=== PATIENT | female | born 1985 | race Caucasian/White ===

== ENCOUNTER 2023-01-31 12:59 | Observation (INO) ==
--- NOTE | 2023-01-31 13:22 | ED Triage Note ---
Date of Service January 31, 2023 History of Present Illness This patient was briefly evaluated while in triage. An abbreviated physical exam was performed. This patient is a 37-year-old Female who presents to the ED for evaluation of left leg swelling and redness. Seen here on Saturday for same complaints and di agnosed with cellulitis. She has been taking her prescribed antibiotics. She presents today for increasing redness, swelling and a fever yesterday. Denies chills, n/v, chest pain, SOB, abdominal pain. Physical Exam Constitutional: alert and oriented x3. no acute distress. HEENT: normocephalic, atraumatic. normal conjunctiva.PERRLA. EOM's grossly intact. Respiratory: lungs are clear to auscultation without wheezes, rhonchi, or rales bilaterally. equal chest rise. normal respiratory effort, no accessory muscle use. Cardiovascular: normal heart sounds without murmur. regular rate and rhythm. GI: abdomen is soft, nontender. Skin: left lower leg erythema from ankle to knee with associated swelling and induration MSK: moves all 4 extremities spontaneously Peripheral vascular: extremities warm and well perfused Psych:appropriate mood and affect. Initial orders for labs and / or imaging were placed and patient was placed in the waiting area until a bed is available. Please see further documentation for the full ED course.
[2023-01-31 14:22] LABS: Basophils # (auto) 0.05 K/uL (0-0.2); Basophils % (auto) 0.7 %; Eosinophils # (auto) 0.52 K/uL (0-0.50); Eosinophils % (auto) 7.8 %; Hematocrit (blood only) 43.2 % (37.0-47.0); Hemoglobin 13.5 g/dl (12.0-16.0); Immature Granulocytes # (auto) 0.04 K/uL (0.01-0.20); Immature Granulocytes % (auto) 0.6 %; Lymphocytes # (auto) 1.33 K/uL (1.2-3.4); Lymphocytes % (auto) 19.9 %; Mean Corpuscular Hemoglobin 26.6 pg (25.0-34.0); Mean Corpuscular Hgb Conc 31.3 g/dL (32.0-36.0); Mean Platelet Volume 10.1 fL (9.4-12.4); Monocytes # (auto) 0.36 K/uL (0.11-0.59); Monocytes % (auto) 5.4 %; Neutrophils % (auto) 65.6 %; Platelet Count 210 K/uL (130-400); RDW Coefficient of Variation 14.6 % (11.5-14.5); RDW Standard Deviation 44.6 fL (36.4-46.3); Red Blood Count 5.08 M/uL (4.20-5.40)
[2023-01-31 14:23] LABS: Alanine Aminotransferase 27 U/L (7-52); Albumin Globulin Ratio 1.1 (0.9-2); Albumin Level 3.8 gm/dl (3.4-5.0); Alkaline Phosphatase 46 U/L (34-104); Anion Gap 6 (3-11); Aspartate Aminotransferase 20 U/L (13-39); Bilirubin,Total 0.5 mg/dl (0.2-1.0); Blood Urea Nitrogen 15 mg/dl (6-23); Calcium 8.9 mg/dl (8.6-10.3); Carbon Dioxide 30 mmol/L (21-32); Chloride 103 mmol/L (98-107); Est GFR (African American) 88.6 ml/min; Est GFR (Non-African American) 76.4 ml/min; Globulin 3.4 gm/dl (2.5-4.0); Glucose 117 mg/dl (70-99(Fasting)); Potassium 3.7 mmol/L (3.5-5.1); Sodium 139 mmol/L (136-145); Total Protein 7.2 gm/dl (6.0-8.3)
[2023-01-31] MEDS ORDERED: CEFEPIME 2,000 MG/20 ML VIAL IV STA (14:55)
--- NOTE | 2023-01-31 14:58 | History & Physical Report ---
Date of Service January 31, 2023 Assessment & Plan (1) Cellulitis: Plan: -Admit to med/surge -Currently stable -Patient with significant cellulitis of the LLE, does not appear systemically toxic at this time -Has been on multiple oral abx including keflex, doxy, and Bactrim without full resolution -S/P one dose of cefepime and daptomycin in the ED -Will continue with daptomycin monotherapy for now to cover likely MRSA infection -Blood cultures obtained prior to giving abx in the ED -Will obtain CRP and trend daily to monitor for improvement as she is without a leukocytosis or elevated procal -If no improvement after initial IV anx therapy should consider imaging to monitor for possible OM with the extended duration of her infection -Will give 1L LR bolus -SQ lovenox for DVT PPX -AM CBC, BMP, CRP -HH diet (2) Rash: Plan: -Patient noted to have dryl/scaly and erythematous patches on the BL feet and elbows consistent with possible Psoriasis -Patient never previously diagnosed or treated -Will start BID topical 2% hydrocortisone ointment on the BL upper extremities only with her acute infection at this time Plan The patient was discussed with Dr. Harp at the time of the admission History of Present Illness Chief Complaint: Left leg pain Primary Care Provider: NO PCP Jannie is a 37 year old female with a PMH significant for morbid obesity who presented to the [facility] ED on 01/31/23 with a chief complaint of left LE swelling, redness, and fevers. In the ED vitals were significant for a BP of 174/111 and HR of 101. Labs including CBC, CMP, and procal were only significant for a glucose of 117. Prior to admission the patient was given a dose of Cefepime and Daptomycin. At the time of the exam the patient was sitting in bed in no acute distress. 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 She put some Black Drawing Salve on the area which later caused a pimple/boil to form. She subsequently picked the boil, breaking the skin. She then developed significant erythema, swelling, and pain. She went to an acute care who initially started her on Keflex, but transitioned her to Bactrim 3 days later as she was not improving. She completed the course of bactrim and her symptoms seemed to resolve, but the returned earlier this month. She was seen in the [facility] ED on 01/19 and had a negative LLE venous doppler, she was discharged on Doxycycline and Keflex. She returned to the ED on 01/28 as her symtpoms were not improving and she was switched to Keflex and Bactrim but her symptoms have still not improved. Last night she had a temperature of 100.1F. She denies recent chills, chest pain, SOB, abd pain, nausea, vomiting, diarrhea, dysuria, hematuria, melena, RLE swelling and recent trauma. She denies other significant PMH. When asked, she states that she has had some of the red and dry/scaly skin patches on the BL upper and lower extremities "for years". She has never been seen for these skin patches and typically puts lotion on them. Please refer to Dr. Harp's attestation for any changes to the treatment plan Allergies Allergy/AdvReac Type Severity Reaction Status Date / Time No Known Allergies Allergy Verified 01/31/23 15:20 Home Medications Medication Instructions Recorded Confirmed Type sulfamethoxazole 800 1 tab PO BID 7 days #14 tabs 01/28/23 01/31/23 Rx mg-trimethoprim 160 mg tablet (Bactrim DS) cephalexin 500 mg capsule 500 mg PO Q6H 01/31/23 01/31/23 History Past Med/Surg History Social History Smoking Status: Never smoker Hx Alcohol Use: No Hx Substance Use: No Preferred Language: Ivorian Communication Ability: Effective Fender Finisher Required: No Beliefs That Will Affect Care: None Current Living Situation: Parent Other Information That Helps Us Care for You: No Feels Safe at Home: Yes Safety Concerns: Feels Safe At This Time Assistive Devices: None Physical Exam Physical Exam: Physical Exam: General: In no acute distress, stated age, morbidly obese, well-nourished, non-toxic appearing HEENT: Normocephalic, atraumatic, no scleral icterus, pupils around round, symmetrical, and reactive to light, moist mucus membranes, trachea midline, no thyromegaly Chest/Pulm: No respiratory distress, symmetrical chest expansion, clear breath sounds throughout Cardiac: RRR, no murmurs noted Abdomen: Negative for ascites and bruising, normoactive bowel sounds, soft, non-tender to palpation throughout Musculoskeletal: Symmetrical and without signs of acute trauma, upper and lower extremities with full ROM, no atrophy, spasticity, or flaccidity Extremities: Radial, dorsalis pedis, and posterior tibial pulses are intact and symmetrical, significant swelling in the LLE Skin: Patient with singificant circumferential erythema and swelling of the LLE from the distal mathews to the proximal mathews, well-healing scab noted in the middle of the mathews without signs of drainage, multiple patches of dry/scaly/erythematous skin on the dorsal aspects of the BL feet and overlying the BL elbows Neuro: Alert and oriented to person, place, month, year, and president, no focal defects, no tremors noted Psych: No acute distress, calm and cooperative during the exam Results & Data Results & Data Vital Signs (Past 12 Hours) Vital Signs Pulse Resp BP Pulse Ox O2 Del Method 01/31/23 13:19 102 H 16 174/111 H 97 Room Air Laboratory Results Abnormal lab results 01/31/23 01/31/23 Range/Units 13:41 13:41 MCHC 31.3 L (32.0-36.0) g/dL RDW Coeff of Jim 14.6 H (11.5-14.5) % Eos # (Auto) 0.52 H (0-0.50) K/uL Glucose 117 H (70-99(Fasting)) mg/dl Code Status & VTE Plan Code Status FUll code Supervising Physician Co-Signing Physician Notes I personally saw and examined the patient. I verified all echevarria points and agree with Yoan Jones PA-C with the following exceptions and/or additions: 37 year old female with ongoing left lower extremity cellulitis with various stages of improvement on antibiotics. Main improvements seen when covered for MRSA with doxycycline or Bactrim. Initial skin lesion with pus but resolved. O/E Morbidly obese, HS RRR, no murmurs, Chest CTAB, Abdo SNT, erythema and swelling on left lower extremity from knee to ankle surrounding calf but significantly more erythematous anteriorly, healed wound without fluctuance over anterior mathews, scaling well demarcated rash over b/l feet and elbows consistent with psoriasis A/P Left lower extremity cellulitis - venous doppler negative on 01/19 (I do not see a reason to repeat this currently). No fluctuance on exam to suggest need for further imaging unless she does not improve. Suspect failure due to morbid obesity with some venous insufficiency edema - suspect she just requires a longer course of antibiotics with MRSA coverage. Start daptomycin and cefepime here. Follow up blood cultures. Psoriasis - never knew she had this diagnosis, use steroid creams PRN, follow up with her PCP for ongoing management PG Care Time/CCT Total # of Minutes Spent Total Time Spent with Patient: Total time spent is greater than 50% in coordination of care (as documented) at patient's floor/unit and/or counseling patient: [place] [address] INT INP/OBS CARE 3/75MIN Patient Type Established Medical Decision Making High Complexity Diagnoses Cellulitis L03.90 Rash R21
[2023-01-31] MEDS ORDERED: DAPTOmycin 425 MG in SYRINGE 0 ML IV STA ×2 (15:11→15:12)
[2023-01-31] MEDS ORDERED: LACTATED RINGER'S 1,000 ML IV ONE (15:16)
--- NOTE | 2023-01-31 15:40 | Emergency Department Note ---
Impression & Plan Cellulitis of left leg ED Provider Note INFORMANT: Patient ED PROVIDER(S): Mendoza Mullins MD CHIEF COMPLAINT: Leg pain PLAN: Disposition: Admitted Condition: Good Outpatient prescription management: none Referral: MEDICAL DECISION MAKING: Patient presented because of leg pain. Physical examination was concerning for cellulitis. Unfortunately despite multiple courses of antibiotics she is getting worse. I did discuss this with the ED pharmacist and it was felt that she would be best treated with IV antibiotics. We did choose cefepime and daptomycin. Discussed further management in the hospital with the patient. I did order CT imaging of the leg. Patient was in agreement. Consultation was made with Dr. Kaveh Harp of the [facility] service. Patient was evaluated in the ER for further management. He did ask for the CT to be held and would like to initiate treatment first. After review of the information above and other included data, I feel the patient requires admission. Triage Nursing notes reviewed and agree them. Vital Signs: reviewed and remarkable for no significant abnormalities Prior /Outside records reviewed: Prior ED visits reviewed. Differential diagnosis: Cellulitis, abscess, MRSA infection, DVT, necrotizing fasciitis, dermatitis, drug eruption, allergic reaction, as well as other pathologies. Diagnostics, as interpreted by me: ECG: none Cardiac Monitoring: none Medical decision rules: none Imaging studies: Canceled by internal medicine HPI: The patient is a 37 year old female who presents to the Emergency Room with complaints of left leg pain. This started a month ago and is worsening. The patient was diagnosed previously with cellulitis. She is completed 3 courses of antibiotics and although she had some improvement initially she got worse. She was seen in the ED 3 days ago and Bactrim was added. She noted being feverish yesterday and the leg is more red and tender. Initially ultrasound was performed and ruled out DVT. Patient noted at the start there was a small pimple on the mathews and she did pop this. The patient also notes the following associated symptoms, left leg swelling. The patient has found no relieving factors. Current pain is rated as 7/10. Pt denies LOC, headache, diaphoresis, visual changes, neck pain, chest pain, breathing difficulties, nausea, vomiting, abdominal pain, back pain, urinary symptoms, numbness, weakness, lymphadenopathy, or other complaints. 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 Oropharynx unremarkable. EYES: Normal conjunctiva. Sclera non-icteric. NECK: Inspection normal. Non-tender. Supple. No nuchal rigidity. FROM. No masses. RESPIRATORY: Clear to auscultation. No wheezes. No rales. Normal respiratory effort. CARDIAC: Normal rate. Normal rhythm. No murmurs. No rubs. Extremities warm and well perfused. Pulses equal. No JVD. GI: Soft, non-distended. No tenderness to palpation. No rebound or guarding. No masses. RECTAL: Deferred. MUSCULOSKELETAL: Atraumatic. Chest examination reveals no tenderness. The back is symmetrical on inspection without obvious abnormality. There is no CVA tenderness to palpation. No joint edema. LOWER EXTREMITIES: There is erythematous discoloration to the left mathews. No crepitus. There is a healing scab noted in the mid mathews. 1+ edema. Right lower extremity is unremarkable. NEURO: Normal sensorium. No sensory or motor deficits noted. SKIN: Erythematous and warmth consistent with cellulitis of the left lower extremity. There is a small patch of psoriasis noted on the left ankle. No petechia, purpura, vesicles, pustules or bullae noted. Past Med/Surg History Social History Smoking Status: Never smoker Preferred Language: Japanese Feels Safe at Home: Yes Allergies Allergies Allergy/AdvReac Type Severity Reaction Status Date / Time No Known Allergies Allergy Verified 01/31/23 15:20 Home Meds Home Medications Medication Instructions Recorded Confirmed cephalexin 500 mg capsule 500 mg PO Q6H 01/31/23 01/31/23 Previous Rx's Medication Instructions Recorded sulfamethoxazole 800 1 tab PO BID 7 days #14 tabs 01/28/23 mg-trimethoprim 160 mg tablet (Bactrim DS) Results & Data (ED) Vital Signs Vital Signs - 24 hr 01/31/23 13:19 01/31/23 15:06 Pulse Rate 102 H Respiratory Rate 16 16 Respiratory Depth Normal Blood Pressure 174/111 H Blood Pressure Mean 132 Pulse Oximetry 97 Oxygen Delivery Method Room Air Sepsis Recent Fever Within 48 Hours Yes Sepsis New/Unexplained Change in Mental Status No Sepsis Action Taken by Nursing No Action Required Laboratory Data 01/31/23 13:41 01/31/23 13:41 Lab Results 01/31/23 01/31/23 01/31/23 Range/Units 13:41 13:41 13:41 WBC 6.70 (4.8-10.8) K/ul RBC 5.08 (4.20-5.40) M/uL Hgb 13.5 (12.0-16.0) g/dl Hct 43.2 (37.0-47.0) % MCV 85.0 (80.0-100.0) fL MCH 26.6 (25.0-34.0) pg MCHC 31.3 L (32.0-36.0) g/dL RDW Std Deviation 44.6 (36.4-46.3) fL RDW Coeff of Jim 14.6 H (11.5-14.5) % Plt Count 210 (130-400) K/uL MPV 10.1 (9.4-12.4) fL Immature Gran % (Auto) 0.6 % Neut % (Auto) 65.6 % Lymph % (Auto) 19.9 % Briscoe % (Auto) 5.4 % Eos % (Auto) 7.8 % Baso % (Auto) 0.7 % Neut # (Auto) 4.40 (1.40-6.50) K/uL Lymph # (Auto) 1.33 (1.2-3.4) K/uL Briscoe # (Auto) 0.36 (0.11-0.59) K/uL Eos # (Auto) 0.52 H (0-0.50) K/uL Baso # (Auto) 0.05 (0-0.2) K/uL Immature Gran # (Auto) 0.04 (0.01-0.20) K/uL Sodium 139 (136-145) mmol/L Potassium 3.7 (3.5-5.1) mmol/L Chloride 103 (98-107) mmol/L Carbon Dioxide 30 (21-32) mmol/L Anion Gap 6 (3-11) BUN 15 (6-23) mg/dl Creatinine 0.94 (0.6-1.2) mg/dl Est Cr Clr Drug Dosing Not Reportable Est GFR ( Amer) 88.6 ml/min Est GFR (Non-Af Amer) 76.4 ml/min BUN/Creatinine Ratio 16.0 (10-20) Glucose 117 H (70-99(Fasting)) mg/dl Lactate 1.0 (0.4-2.0) mmol/L Calcium 8.9 (8.6-10.3) mg/dl Total Bilirubin 0.5 (0.2-1.0) mg/dl AST 20 (13-39) U/L ALT 27 (7-52) U/L Alkaline Phosphatase 46 (34-104) U/L Total Protein 7.2 (6.0-8.3) gm/dl Albumin 3.8 (3.4-5.0) gm/dl Globulin 3.4 (2.5-4.0) gm/dl Albumin/Globulin Ratio 1.1 (0.9-2) Procalcitonin (0-0.5) ng/ml 01/31/23 Range/Units 13:41 WBC (4.8-10.8) K/ul RBC (4.20-5.40) M/uL Hgb (12.0-16.0) g/dl Hct (37.0-47.0) % MCV (80.0-100.0) fL MCH (25.0-34.0) pg MCHC (32.0-36.0) g/dL RDW Std Deviation (36.4-46.3) fL RDW Coeff of Jim (11.5-14.5) % Plt Count (130-400) K/uL MPV (9.4-12.4) fL Immature Gran % (Auto) % Neut % (Auto) % Lymph % (Auto) % Briscoe % (Auto) % Eos % (Auto) % Baso % (Auto) % Neut # (Auto) (1.40-6.50) K/uL Lymph # (Auto) (1.2-3.4) K/uL Briscoe # (Auto) (0.11-0.59) K/uL Eos # (Auto) (0-0.50) K/uL Baso # (Auto) (0-0.2) K/uL Immature Gran # (Auto) (0.01-0.20) K/uL Sodium (136-145) mmol/L Potassium (3.5-5.1) mmol/L Chloride (98-107) mmol/L Carbon Dioxide (21-32) mmol/L Anion Gap (3-11) BUN (6-23) mg/dl Creatinine (0.6-1.2) mg/dl Est Cr Clr Drug Dosing Est GFR ( Amer) ml/min Est GFR (Non-Af Amer) ml/min BUN/Creatinine Ratio (10-20) Glucose (70-99(Fasting)) mg/dl Lactate (0.4-2.0) mmol/L Calcium (8.6-10.3) mg/dl Total Bilirubin (0.2-1.0) mg/dl AST (13-39) U/L ALT (7-52) U/L Alkaline Phosphatase (34-104) U/L Total Protein (6.0-8.3) gm/dl Albumin (3.4-5.0) gm/dl Globulin (2.5-4.0) gm/dl Albumin/Globulin Ratio (0.9-2) Procalcitonin < 0.05 (0-0.5) ng/ml Administered Medications Discontinued Medications Cefepime HCl (Maxipime) 2,000 mg in 20 mls @ 5 mls/min IV NOW STA; Protocol Stop: 01/31/23 14:58 Last Admin: 01/31/23 15:06 Dose: 5 mls/min Documented By: KV Discharge Plan Visit Data Chief Complaint: Leg Injury/Pain Stated Complaint: LEG IS RED AND SWOLLEN ED Provider: Mendoza Mullins Discharge Problem: Cellulitis of left leg Forms Stand Alone Forms: My [facility] Prescriptions Prescriptions: No Action sulfamethoxazole-trimethoprim [Bactrim DS] 800-160 mg tablet 1 tab PO BID 7 Days Qty: 14 0RF Rx Instructions: STARTED 01/30/23 FOR 7 DAYS. cephalexin 500 mg capsule 500 mg PO Q6H Rx Instructions: STARTED 01/30/23 FOR 5 DAYS. Referrals Referrals: PCP,NO [Primary Care Provider] -
[2023-01-31 15:46] LABS: C Reactive Protein 2.29 mg/dl (0-0.5)
[2023-01-31] MEDS: ENOXAPARIN INJ 40 MG/0.4 ML SYR SQ SCH (21:57)
[2023-01-31] MEDS: HYDROCORTISONE 2.5% CR 30 GM TUBE EXT SCH (21:58)
[2023-01-31] MEDS: CEFEPIME 2,000 MG in SYRINGE 0 ML IV SCH (22:10)
[2023-02-01] MEDS: CEFEPIME 2,000 MG in SYRINGE 0 ML IV SCH ×3 (06:06→22:07)
[2023-02-01 06:50] LABS: Basophils # (auto) 0.07 K/uL (0-0.2); Basophils % (auto) 1.2 %; Eosinophils # (auto) 0.48 K/uL (0-0.50); Hematocrit (blood only) 39.1 % (37.0-47.0); Hemoglobin 12.1 g/dl (12.0-16.0); Immature Granulocytes # (auto) 0.03 K/uL (0.01-0.20); Immature Granulocytes % (auto) 0.5 %; Lymphocytes # (auto) 1.52 K/uL (1.2-3.4); Lymphocytes % (auto) 25.2 %; Mean Corpuscular Hemoglobin 26.4 pg (25.0-34.0); Mean Corpuscular Hgb Conc 30.9 g/dL (32.0-36.0); Mean Corpuscular Volume 85.2 fL (80.0-100.0); Mean Platelet Volume 10.7 fL (9.4-12.4); Monocytes # (auto) 0.48 K/uL (0.11-0.59); Neutrophils # (auto) 3.45 K/uL (1.40-6.50); Neutrophils % (auto) 57.1 %; Platelet Count 188 K/uL (130-400); RDW Coefficient of Variation 14.6 % (11.5-14.5); RDW Standard Deviation 44.7 fL (36.4-46.3); Red Blood Count 4.59 M/uL (4.20-5.40); White Blood Count 6.03 K/ul (4.8-10.8)
[2023-02-01 07:06] LABS: Est GFR (African American) 93.4 ml/min; Potassium 3.9 mmol/L (3.5-5.1)
[2023-02-01 07:07] LABS: BUN Creatinine Ratio 15.6 (10-20); C Reactive Protein 2.26 mg/dl (0-0.5); Calcium 8.7 mg/dl (8.6-10.3); Est GFR (Non-African American) 80.5 ml/min
--- NOTE | 2023-02-01 08:08 | Hospitalist Progress Note ---
Date of Service February 01, 2023 Assessment & Plan (1) Cellulitis: Plan: Recurrent/ongoing despite multiple rounds of PO abx as an outpatient after having a blister turned pimple to anterior L mathews and subsequently developed cellulitis. * Happened mid-december, was seen at urgent care and given keflex and then changed to bactrim after 3 days without improvement. Seen in ER 01/19 (doppler negative for DVT at that time) and discharged on Doxy/Keflex with some improvement and then worsening and represented to ER 01/28 and changed to Keflex/Bactrim Given Cefepime/Dapto in ER --> continues on Cefepime/Dapto for MRSA/pseudomonal coverage. Unknown hx DM, but suspect at least insulin resistance/obesity Added probiotic given continued abx use -- denied excessive diarrhea concerning for cdiff but will monitor Blood cultures pending CRP elevated but improved 2.29--> 2.26 and will trend Xray w/o bony involvement Did not have appreciable abscess on exam, erythema within marking but if without significant improvement in AM will obtain further imaging Elevate extremity Will add tylenol 1gm Q8h prn for tylenol/fever, oxycodone 5mg prn moderate pain. Zofran added prn Check A1c for AM to eval for underlying DM. Lovenox SQ ordered for DVT proph (2) Rash: Plan: Patient noted to have dryl/scaly and erythematous patches on the BL feet and elbows c/w psoriasis, never dianoged in past or treated Started topical hydrocortisone BID (not to affected cellulitic leg at this time, patient aware of such) CM working on ref to derm at discharge Plan continued inpatient stay Admission and Anticipated Discharge Date Admission Date: January 31, 2023 Supervising Physician Co-Signing Physician Notes PA Supervision Note: I did not personally see or examine the patient today, but I verified all echevarria points of OLGA Prince's assessment and plan with the following exceptions/additions: Patient also with persistently elevated blood pressures Monitor but may need to start on antihypertensive Continue broad-spectrum coverage given failure of outpatient antibiotic therapy to include coverage for Pseudomonas with cefepime and daptomycin for MRSA as well as other staph and strep Most likely would need a much more potent steroid for psoriasis such as budesonide Subjective eval this morning, doing alright sitting up in chair, leg propped up on recliner. redness about the same, possibly slightly less. reports edema improved. Discussed in bed/propping up to level of heart to help with swelling. 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 No prior infectious history. She does have bilateral plaques/scaly to feet and posterior elbows c/w psoriasis and discussed dermatology in follow up. She also does not have PCP -- working on such. Obesity but no known history of diabetes. Discussed increased risk for pseudomonal infections. Last fever ~100/101 on Saturday. She reports initially had been improving on orals but should have stayed when Dr Longoria asked her but she didn't have anything with her and that they thought reasonable to give dual abx a shot. Pain currently controlled with ordered medications. No chills, chest pain, shortness of breath, abdominal pain, nausea or vomiting at present. Questions/concerns addressed at this time. Physical Exam Physical Exam: General : WD/WN obese female sitting up in chair, leg elevated on chair HEENT: head normocephalic, atraumatic, thick neck, trachea midline Resp: CTA, diminished in the bases, 96% on RA, no w/c CV: RRR, no significant m/r/g GI: +BS, soft/NT : no barragan MSK/Neuro/Skin: no focal deficit/slurred speech, answering questions appropriately L anterior mathews in site of prior "pimple" with scab, no fluctuance or drainage appreciated significant erythema to LLE, primarily anteriorly, within markings, tenderness to palpation dry/flaking plaques to b/l dorsal feet, posterior elbows c/w psoriasis Psych: AOx3, cooperative and pleasant with exam Results & Data Results & Data Vital Signs (Past 12 Hours) Vital Signs Temp Pulse Pulse Resp BP Pulse Ox O2 Del Method 02/01/23 07:33 36.8 C 88 16 126/84 97 Room Air 01/31/23 20:50 37.1 C 94 H 16 158/108 H 97 Room Air 01/31/23 20:50 Room Air Laboratory Results 02/01/23 02/01/23 01/31/23 Range/Units 05:52 05:52 16:11 WBC 6.03 (4.8-10.8) K/ul RBC 4.59 (4.20-5.40) M/uL Hgb 12.1 (12.0-16.0) g/dl Hct 39.1 (37.0-47.0) % MCV 85.2 (80.0-100.0) fL MCH 26.4 (25.0-34.0) pg MCHC 30.9 L (32.0-36.0) g/dL RDW Std Deviation 44.7 (36.4-46.3) fL RDW Coeff of Jim 14.6 H (11.5-14.5) % Plt Count 188 (130-400) K/uL MPV 10.7 (9.4-12.4) fL Immature Gran % (Auto) 0.5 % Neut % (Auto) 57.1 % Lymph % (Auto) 25.2 % [place] % (Auto) 8.0 % Eos % (Auto) 8.0 % Baso % (Auto) 1.2 % Neut # (Auto) 3.45 (1.40-6.50) K/uL Lymph # (Auto) 1.52 (1.2-3.4) K/uL [place] # (Auto) 0.48 (0.11-0.59) K/uL Eos # (Auto) 0.48 (0-0.50) K/uL Baso # (Auto) 0.07 (0-0.2) K/uL Immature Gran # (Auto) 0.03 (0.01-0.20) K/uL Sodium 137 (136-145) mmol/L Potassium 3.9 (3.5-5.1) mmol/L Chloride 103 (98-107) mmol/L Carbon Dioxide 28 (21-32) mmol/L Anion Gap 6 (3-11) BUN 14 (6-23) mg/dl Creatinine 0.90 (0.6-1.2) mg/dl Est Cr Clr Drug Dosing 140.0 Est GFR ( Amer) 93.4 ml/min Est GFR (Non-Af Amer) 80.5 ml/min BUN/Creatinine Ratio 15.6 (10-20) Glucose 104 H (70-99(Fasting)) mg/dl Lactate (0.4-2.0) mmol/L Calcium 8.7 (8.6-10.3) mg/dl Total Bilirubin (0.2-1.0) mg/dl AST (13-39) U/L ALT (7-52) U/L Alkaline Phosphatase (34-104) U/L C-Reactive Protein 2.26 H (0-0.5) mg/dl Total Protein (6.0-8.3) gm/dl Albumin (3.4-5.0) gm/dl Globulin (2.5-4.0) gm/dl Albumin/Globulin Ratio (0.9-2) Procalcitonin (0-0.5) ng/ml SARS-CoV-2, RNA, NAAT NEGATIVE (NEGATIVE) 01/31/23 01/31/23 01/31/23 Range/Units 13:41 13:41 13:41 WBC (4.8-10.8) K/ul RBC (4.20-5.40) M/uL Hgb (12.0-16.0) g/dl Hct (37.0-47.0) % MCV (80.0-100.0) fL MCH (25.0-34.0) pg MCHC (32.0-36.0) g/dL RDW Std Deviation (36.4-46.3) fL RDW Coeff of Jim (11.5-14.5) % Plt Count (130-400) K/uL MPV (9.4-12.4) fL Immature Gran % (Auto) % Neut % (Auto) % Lymph % (Auto) % [place] % (Auto) % Eos % (Auto) % Baso % (Auto) % Neut # (Auto) (1.40-6.50) K/uL Lymph # (Auto) (1.2-3.4) K/uL [place] # (Auto) (0.11-0.59) K/uL Eos # (Auto) (0-0.50) K/uL Baso # (Auto) (0-0.2) K/uL Immature Gran # (Auto) (0.01-0.20) K/uL Sodium 139 (136-145) mmol/L Potassium 3.7 (3.5-5.1) mmol/L Chloride 103 (98-107) mmol/L Carbon Dioxide 30 (21-32) mmol/L Anion Gap 6 (3-11) BUN 15 (6-23) mg/dl Creatinine 0.94 (0.6-1.2) mg/dl Est Cr Clr Drug Dosing Not Reportable Est GFR ( Amer) 88.6 ml/min Est GFR (Non-Af Amer) 76.4 ml/min BUN/Creatinine Ratio 16.0 (10-20) Glucose 117 H (70-99(Fasting)) mg/dl Lactate 1.0 (0.4-2.0) mmol/L Calcium 8.9 (8.6-10.3) mg/dl Total Bilirubin 0.5 (0.2-1.0) mg/dl AST 20 (13-39) U/L ALT 27 (7-52) U/L Alkaline Phosphatase 46 (34-104) U/L C-Reactive Protein 2.29 H (0-0.5) mg/dl Total Protein 7.2 (6.0-8.3) gm/dl Albumin 3.8 (3.4-5.0) gm/dl Globulin 3.4 (2.5-4.0) gm/dl Albumin/Globulin Ratio 1.1 (0.9-2) Procalcitonin < 0.05 (0-0.5) ng/ml SARS-CoV-2, RNA, NAAT (NEGATIVE) 01/31/23 Range/Units 13:41 WBC 6.70 (4.8-10.8) K/ul RBC 5.08 (4.20-5.40) M/uL Hgb 13.5 (12.0-16.0) g/dl Hct 43.2 (37.0-47.0) % MCV 85.0 (80.0-100.0) fL MCH 26.6 (25.0-34.0) pg MCHC 31.3 L (32.0-36.0) g/dL RDW Std Deviation 44.6 (36.4-46.3) fL RDW Coeff of Jim 14.6 H (11.5-14.5) % Plt Count 210 (130-400) K/uL MPV 10.1 (9.4-12.4) fL Immature Gran % (Auto) 0.6 % Neut % (Auto) 65.6 % Lymph % (Auto) 19.9 % [place] % (Auto) 5.4 % Eos % (Auto) 7.8 % Baso % (Auto) 0.7 % Neut # (Auto) 4.40 (1.40-6.50) K/uL Lymph # (Auto) 1.33 (1.2-3.4) K/uL [place] # (Auto) 0.36 (0.11-0.59) K/uL Eos # (Auto) 0.52 H (0-0.50) K/uL Baso # (Auto) 0.05 (0-0.2) K/uL Immature Gran # (Auto) 0.04 (0.01-0.20) K/uL Sodium (136-145) mmol/L Potassium (3.5-5.1) mmol/L Chloride (98-107) mmol/L Carbon Dioxide (21-32) mmol/L Anion Gap (3-11) BUN (6-23) mg/dl Creatinine (0.6-1.2) mg/dl Est Cr Clr Drug Dosing Est GFR ( Amer) ml/min Est GFR (Non-Af Amer) ml/min BUN/Creatinine Ratio (10-20) Glucose (70-99(Fasting)) mg/dl Lactate (0.4-2.0) mmol/L Calcium (8.6-10.3) mg/dl Total Bilirubin (0.2-1.0) mg/dl AST (13-39) U/L ALT (7-52) U/L Alkaline Phosphatase (34-104) U/L C-Reactive Protein (0-0.5) mg/dl Total Protein (6.0-8.3) gm/dl Albumin (3.4-5.0) gm/dl Globulin (2.5-4.0) gm/dl Albumin/Globulin Ratio (0.9-2) Procalcitonin (0-0.5) ng/ml SARS-CoV-2, RNA, NAAT (NEGATIVE) Diagnostic Findings Tibia/Fibula X-Ray 02/01/23 10:34 XR tibia fibula LT 2V CLINICAL HISTORY: ongoing cellulitis, eval osteo TECHNIQUE: 2 radiographic views of the left leg were obtained. Comparison: None available at the time of this dictation. FINDINGS: No focal erosions are seen to suggest osteomyelitis. Joint spaces are well- preserved. Vascular calcifications are seen. IMPRESSION: No focal erosions are seen to suggest osteomyelitis. If clinical concern remains, MRI is a more sensitive modality. ACT 112: Negative or not required by law. Electronically signed by: Damián Jernigan M.D. 02/01/2023 11:45 AM PG Care Time/CCT Total # of Minutes Spent Total Time Spent with Patient: Total time spent is greater than 50% in coordination of care (as documented) at patient's floor/unit and/or counseling patient: Coding Level of Care Code 00128 SUB INP/OBS CARE 3/50MIN Diagnoses Cellulitis L03.90 Rash R21
[2023-02-01] MEDS: ENOXAPARIN INJ 40 MG/0.4 ML SYR SQ SCH ×2 (09:23→19:47)
[2023-02-01] MEDS: HYDROCORTISONE 2.5% CR 30 GM TUBE EXT SCH ×2 (09:51→19:47)
--- NOTE | 2023-02-01 11:46 | XRay Report ---
XR tibia fibula LT 2V CLINICAL HISTORY: ongoing cellulitis, eval osteo TECHNIQUE: 2 radiographic views of the left leg were obtained. Comparison: None available at the time of this dictation. FINDINGS: No focal erosions are seen to suggest osteomyelitis. Joint spaces are well-preserved. Vascular calcif ications are seen. IMPRESSION: No focal erosions are seen to suggest osteomyelitis. If clinical concern remains, MRI is a more sensi tive modality. ACT 112: Negative or not required by law. Electronically signed by: Damián Jernigan M.D. 02/01/2023 11:45 AM
[2023-02-01] MEDS: DAPTOmycin 425 MG in SYRINGE 0 ML IV SCH (15:10)
[2023-02-01] MEDS ORDERED: ACETAMINOPHEN 500 MG TAB PO PRN (15:17)
[2023-02-01] MEDS ORDERED: oxyCODONE HCL IR 5 MG TAB (IMMEDIATE RELEASE) PO PRN (15:17)
[2023-02-01] MEDS ORDERED: ONDANSETRON INJ 2 MG/ML 2 ML VIAL IV PRN (15:18)
[2023-02-01] MEDS: ADVANCED PROBIOTIC 1250 MG CAPSULE PO SCH (16:43)
[2023-02-02] MEDS: CEFEPIME 2,000 MG in SYRINGE 0 ML IV SCH ×3 (05:46→21:01)
[2023-02-02 06:13] LABS: Basophils # (auto) 0.06 K/uL (0-0.2); Basophils % (auto) 1.1 %; Eosinophils # (auto) 0.39 K/uL (0-0.50); Eosinophils % (auto) 7.3 %; Hematocrit (blood only) 39.6 % (37.0-47.0); Hemoglobin 12.5 g/dl (12.0-16.0); Immature Granulocytes # (auto) 0.02 K/uL (0.01-0.20); Immature Granulocytes % (auto) 0.4 %; Lymphocytes # (auto) 1.93 K/uL (1.2-3.4); Lymphocytes % (auto) 36.2 %; Mean Corpuscular Hemoglobin 26.7 pg (25.0-34.0); Mean Corpuscular Hgb Conc 31.6 g/dL (32.0-36.0); Mean Corpuscular Volume 84.6 fL (80.0-100.0); Mean Platelet Volume 10.3 fL (9.4-12.4); Monocytes # (auto) 0.54 K/uL (0.11-0.59); Monocytes % (auto) 10.1 %; Neutrophils # (auto) 2.39 K/uL (1.40-6.50); Neutrophils % (auto) 44.9 %; Platelet Count 193 K/uL (130-400); RDW Coefficient of Variation 14.6 % (11.5-14.5); RDW Standard Deviation 44.7 fL (36.4-46.3); Red Blood Count 4.68 M/uL (4.20-5.40); White Blood Count 5.33 K/ul (4.8-10.8)
[2023-02-02 06:18] LABS: BUN Creatinine Ratio 16.9 (10-20); C Reactive Protein 1.6 mg/dl (0-0.5); Creatinine Clr Calc Pharmacy 175.1 ml/min; Est GFR (Non-African American) 88.8 ml/min; Potassium 3.8 mmol/L (3.5-5.1)
[2023-02-02 06:51] LABS: Estimated Average Glucose 134 mg/dl; Hemoglobin A1C 6.3 % (4.5-5.6)
[2023-02-02] MEDS ORDERED: hydroCHLOROthiazide 25 MG TAB PO STA ×2 (07:46→18:08)
--- NOTE | 2023-02-02 07:49 | Hospitalist Progress Note ---
Date of Service February 02, 2023 Assessment & Plan (1) Cellulitis: Plan: Recurrent/ongoing despite multiple rounds of PO abx as an outpatient after having a blister turned pimple to anterior L mathews and subsequently developed cellulitis. * Happened mid-december, was seen at urgent care and given keflex and then changed to bactrim after 3 days without improvement. Seen in ER 01/19 (doppler negative for DVT at that time) and discharged on Doxy/Keflex with some improvement and then worsening and represented to ER 01/28 and changed to Keflex/Bactrim Cefepime/Dapto for MRSA/strep/pseudomonas coverage Unknown prior hx DM< A1c checked and pre-DM 6.3 Probiotic Blood cultures NGTD CRP trending down on repeat Xray w/o tray involvement Appearing improved on exam, no need for MRI/CT at present Pain control -- has not needed Lovenox for DVT prophylaxis Monitor response/likely ability to switch to PO tomorrow likely to Bactrim/Clinda? (2) Rash: Plan: Patient noted to have dryl/scaly and erythematous patches on the BL feet and elbows c/w psoriasis, never dianoged in past or treated Started topical hydrocortisone BID (not to affected cellulitic leg at this time, patient aware of such) CM working on ref to derm at discharge Changed topical to betamethasone topical -- monitor response (3) Pre-diabetes: Plan: A1c checked, 6.3 -- suspect metabolic syndrome w/ obesity as well/likely insulin resistance Counseling Will need outpt f/u Benefit from starting metformin, defer for now (4) Hypertension: Plan: Significant elevations, initially suspected due to pain but remaining elevated w/ pain resolving as per patient Asymptomatic from such Decision to start HCTZ 12.5mg daily to assist w/ edema as well -- monitor kidney function/BP on repeat Continued titrations as needed (5) Obesity: Plan: noted, BMI 61 Weight loss encouraged PCP being arranged for f/u as she does not have one -- also need f/u for Pre-DM and HTN as above Plan continued inpatient stay, possible switch to PO abx for tomorrow Will need new PCP at or, CM arranging for derm as well for psoriasis suspected Admission and Anticipated Discharge Date Admission Date: January 31, 2023 Supervising Physician Co-Signing Physician Notes PA Supervision Note: I did not personally see or examine the patient today, but I verified all echevarria points of OLGA Prince's assessment and plan with the following exceptions/additions: None Subjective eval this morning, doing well. edema and redness improving, denies having any pain at present laying in bed with extremity elevated discussed BP -- asymptomatic but continues on high side -- discussed HCTZ which we started and hopefully will also assist with swelling and will keep eye on kidney function. Also discussed A1/pre-diabetes. Discussed if blood cultures remain negative, planning to switch to PO abx for tomorrow to include coverage for pseudomonas. Also discussed switching to stronger steroid cream for likely psoriasis. Questions/concerns addressed at this time. Physical Exam Physical Exam: General : WD/WN obese female laying in bed, NAD, leg elevated HEENT: head normocephalic, mmm, trachea midline Resp; no distress, no wheezing, on room air CV: RRR, no significant m/r/g GI: +BS, soft/NT : no barragan MSK/Neuro/Skin: no focal deficit/slurred speech, answering questions appropriately L anterior mathews in site of prior "pimple" with scab, no fluctuance or drainage appreciated significant erythema to LLE, primarily anteriorly, within markings --IMPROVED, less tenderness. dry/flaking plaques to b/l dorsal feet, posterior elbows c/w psoriasis Psych: AOx3, cooperative and pleasant with exam Results & Data Results & Data Vital Signs (Past 12 Hours) Vital Signs Temp Pulse Resp BP BP Pulse Ox O2 Del Method 02/02/23 07:14 36.9 C 81 18 170/116 H 159/105 H 95 Room Air 02/01/23 19:58 36.9 C 87 16 148/98 H 99 Room Air Laboratory Results 02/02/23 02/02/23 02/02/23 Range/Units 05:40 05:40 05:40 WBC 5.33 (4.8-10.8) K/ul RBC 4.68 (4.20-5.40) M/uL Hgb 12.5 (12.0-16.0) g/dl Hct 39.6 (37.0-47.0) % MCV 84.6 (80.0-100.0) fL MCH 26.7 (25.0-34.0) pg MCHC 31.6 L (32.0-36.0) g/dL RDW Std Deviation 44.7 (36.4-46.3) fL RDW Coeff of Jim 14.6 H (11.5-14.5) % Plt Count 193 (130-400) K/uL MPV 10.3 (9.4-12.4) fL Immature Gran % (Auto) 0.4 % Neut % (Auto) 44.9 % Lymph % (Auto) 36.2 % [place] % (Auto) 10.1 % Eos % (Auto) 7.3 % Baso % (Auto) 1.1 % Neut # (Auto) 2.39 (1.40-6.50) K/uL Lymph # (Auto) 1.93 (1.2-3.4) K/uL [place] # (Auto) 0.54 (0.11-0.59) K/uL Eos # (Auto) 0.39 (0-0.50) K/uL Baso # (Auto) 0.06 (0-0.2) K/uL Immature Gran # (Auto) 0.02 (0.01-0.20) K/uL Sodium 139 (136-145) mmol/L Potassium 3.8 (3.5-5.1) mmol/L Chloride 103 (98-107) mmol/L Carbon Dioxide 29 (21-32) mmol/L Anion Gap 7 (3-11) BUN 14 (6-23) mg/dl Creatinine 0.83 (0.6-1.2) mg/dl Est Cr Clr Drug Dosing 175.1 ml/min Est GFR ( Amer) 103.0 ml/min Est GFR (Non-Af Amer) 88.8 ml/min BUN/Creatinine Ratio 16.9 (10-20) Glucose 105 H (70-99(Fasting)) mg/dl Estimat Average Glucose 134 mg/dl Hemoglobin A1c 6.3 H (4.5-5.6) % Calcium 9.0 (8.6-10.3) mg/dl C-Reactive Protein 1.60 H (0-0.5) mg/dl PG Care Time/CCT Total # of Minutes Spent Total Time Spent with Patient: Total time spent is greater than 50% in coordination of care (as documented) at patient's floor/unit and/or counseling patient: Coding Level of Care Code 62878 SUB INP/OBS CARE 50MIN Diagnoses Cellulitis L03.90 Rash R21 Pre-diabetes R73.03 Hypertension I10 Obesity E66.9
[2023-02-02] MEDS: ADVANCED PROBIOTIC 1250 MG CAPSULE PO SCH (08:39)
[2023-02-02] MEDS: ENOXAPARIN INJ 40 MG/0.4 ML SYR SQ SCH ×2 (08:40→21:01)
[2023-02-02] MEDS: BETAMETHASONE DIP AUG (DIPROLENE) 0.05% CR 15 GM TUBE EXT PRN (12:35)
[2023-02-02] MEDS: hydrALAZINE HCL 20 MG/ML VIAL IV PRN (14:51)
[2023-02-02] MEDS: DAPTOmycin 425 MG in SYRINGE 0 ML IV SCH (17:03)
[2023-02-03] MEDS: CEFEPIME 2,000 MG in SYRINGE 0 ML IV SCH ×3 (05:34→21:58)
[2023-02-03 05:49] LABS: Basophils # (auto) 0.05 K/uL (0-0.2); Basophils % (auto) 0.8 %; Eosinophils % (auto) 5.1 %; Hematocrit (blood only) 41.7 % (37.0-47.0); Hemoglobin 13.6 g/dl (12.0-16.0); Immature Granulocytes # (auto) 0.03 K/uL (0.01-0.20); Immature Granulocytes % (auto) 0.5 %; Lymphocytes # (auto) 2.44 K/uL (1.2-3.4); Lymphocytes % (auto) 41.1 %; Mean Corpuscular Hemoglobin 26.8 pg (25.0-34.0); Mean Corpuscular Hgb Conc 32.6 g/dL (32.0-36.0); Mean Corpuscular Volume 82.2 fL (80.0-100.0); Mean Platelet Volume 10.8 fL (9.4-12.4); Monocytes # (auto) 0.42 K/uL (0.11-0.59); Monocytes % (auto) 7.1 %; Neutrophils % (auto) 45.4 %; Platelet Count 195 K/uL (130-400); RDW Coefficient of Variation 14.6 % (11.5-14.5); RDW Standard Deviation 43.5 fL (36.4-46.3); Red Blood Count 5.07 M/uL (4.20-5.40); White Blood Count 5.94 K/ul (4.8-10.8)
[2023-02-03 05:58] LABS: Calcium 8.9 mg/dl (8.6-10.3)
[2023-02-03 06:03] LABS: BUN Creatinine Ratio 18.6 (10-20); C Reactive Protein 0.93 mg/dl (0-0.5); Creatinine Clr Calc Pharmacy 207.6 ml/min; Est GFR (African American) 126.5 ml/min; Est GFR (Non-African American) 109.1 ml/min
--- NOTE | 2023-02-03 08:10 | Hospitalist Progress Note ---
Date of Service February 03, 2023 Assessment & Plan (1) Cellulitis: Plan: Recurrent/ongoing despite multiple rounds of PO abx as an outpatient after having a blister turned pimple to anterior L mathews and subsequently developed cellulitis. * Happened mid-december, was seen at urgent care and given keflex and then changed to bactrim after 3 days without improvement. Seen in ER 01/19 (doppler negative for DVT at that time) and discharged on Doxy/Keflex with some improvement and then worsening and represented to ER 01/28 and changed to Keflex/Bactrim Xray w/o tray involvement Cefepime/Dapto for MRSA/strep/pseudomonas coverage -- would include pseudomonal coverage in oral option at discharge (a1c 6.3 on check) given failure of outpt therapy. Continuing IV abx at present until significant improvement WBC wnl, afebrile Blood cultures NGTD after 48 hours CRP trending down on repeat, 0.63 Added probiotic given repeated abx use, no significant diarrhea to suspect cdiff at present Appearing improved on exam, no need for MRI/CT at present Pain control -- has not needed but is available Lovenox for DVT prophylaxis Monitor response/likely ability to switch to PO tomorrow likely to Bactrim/Cipro if significant improvement on exam (2) Rash: Plan: Patient noted to have dryl/scaly and erythematous patches on the BL feet and elbows c/w psoriasis, never diagnosed in past or treated Topical hydrocortisone BID on admit (not to affected cellulitic leg at this time, patient aware of such) --> switched to betamethasone topical for better response given significant plaques CM working on derm f/u at discharge as above Continue topical rx at discharge in meantime (3) Pre-diabetes: Plan: A1c checked, 6.3 -- suspect metabolic syndrome w/ obesity as well/likely insulin resistance Counseling Will need outpt f/u Benefit from starting metformin, defer for now but could start at discharge (4) Hypertension: Plan: Significant elevations, initially suspected due to pain but remaining elevated w/ pain resolving as per patient Asymptomatic from such Reports white coat HTN, but suspect longer standing given significant elevations Of note, they were prior checking BPs from her forearms Started HCTZ 12.5mg daily --> increased to 25mg daily for this morning, improvement in BPs and also to assist with swelling. Kidney function remaining stable. Monitor/consider adding LEE/ARB given pre-DM as well Monitor response to BP medications -- rx at dc (5) Obesity: Plan: noted, BMI 61 Weight loss encouraged PCP being arranged for f/u as she does not have one -- also need f/u for Pre-DM and HTN as above Plan continued inpatient stay, possible switch to PO abx for tomorrow continued but more significant improvement on exam in morning CM working on new PCP in follow up at discharge as well as dermatology for underlying psoriasis (b/l extensor surfaces elbows and dorsal feet) Admission and Anticipated Discharge Date Admission Date: February 02, 2023 Supervising Physician Co-Signing Physician Notes PA Supervision Note: I did not personally see or examine the patient today, but I verified all echevarria points of OLGA Prince's assessment and plan with the following exceptions/additions: None Subjective Eval this morning, feeling well. Was able to sleep with covers covering her leg which is new from this past week 2nd to pain prior. She has not taken or required any pain medication despite pain but overall much improved as far as pain level. Sensation intact. Within markings but discussed continued IV antibiotics for now and monitoring to possibly transition to pseudomonal/mrsa coverage for tomorrow in oral option if continued improvement. HCTZ started yesterday and Bps improved -- of note, they had been obtaining BPs from forearm days prior, unable to find larger cuff. No headache/blurry vision. Discussed stable kidney function and increased to 25mg for today given elevated BPs and also to assist with swelling. Applying the new betamethasone cream to psoriasis plaques -- Cm working on derm f/u at discharge. No fever/chills, chest pain. Questions/concerns addressed at this time. Physical Exam Physical Exam: General : WD/WN obese female laying in bed, NAD Resp: no acute distress, no w/c, on room air CV: RRR, no significant m/r/g GI: +BS, soft/NT : no barragan MSK/Neuro/Skin: no focal deficit/slurred speech, answering questions appropriately L anterior mathews in site of prior "pimple" with scab, no fluctuance or drainage appreciated significant erythema to LLE, primarily anteriorly, within markings --IMPROVED with decreased tenderness, decreased edema slightly dry/flaking plaques to b/l dorsal feet, posterior elbows c/w psoriasis Psych: AOx3, cooperative and pleasant with exam Results & Data Results & Data Vital Signs (Past 12 Hours) Vital Signs Temp Pulse Resp BP Pulse Ox O2 Del Method 02/03/23 07:08 36.6 C 84 16 146/93 H 95 Room Air 02/02/23 21:00 Room Air Laboratory Results 02/03/23 02/03/23 Range/Units 05:27 05:27 WBC 5.94 (4.8-10.8) K/ul RBC 5.07 (4.20-5.40) M/uL Hgb 13.6 (12.0-16.0) g/dl Hct 41.7 (37.0-47.0) % MCV 82.2 (80.0-100.0) fL MCH 26.8 (25.0-34.0) pg MCHC 32.6 (32.0-36.0) g/dL RDW Std Deviation 43.5 (36.4-46.3) fL RDW Coeff of Jim 14.6 H (11.5-14.5) % Plt Count 195 (130-400) K/uL MPV 10.8 (9.4-12.4) fL Immature Gran % (Auto) 0.5 % Neut % (Auto) 45.4 % Lymph % (Auto) 41.1 % [place] % (Auto) 7.1 % Eos % (Auto) 5.1 % Baso % (Auto) 0.8 % Neut # (Auto) 2.70 (1.40-6.50) K/uL Lymph # (Auto) 2.44 (1.2-3.4) K/uL [place] # (Auto) 0.42 (0.11-0.59) K/uL Eos # (Auto) 0.30 (0-0.50) K/uL Baso # (Auto) 0.05 (0-0.2) K/uL Immature Gran # (Auto) 0.03 (0.01-0.20) K/uL Sodium 137 (136-145) mmol/L Potassium 4.0 (3.5-5.1) mmol/L Chloride 104 (98-107) mmol/L Carbon Dioxide 26 (21-32) mmol/L Anion Gap 7 (3-11) BUN 13 (6-23) mg/dl Creatinine 0.70 (0.6-1.2) mg/dl Est Cr Clr Drug Dosing 207.6 ml/min Est GFR ( Amer) 126.5 ml/min Est GFR (Non-Af Amer) 109.1 ml/min BUN/Creatinine Ratio 18.6 (10-20) Glucose 106 H (70-99(Fasting)) mg/dl Calcium 8.9 (8.6-10.3) mg/dl C-Reactive Protein 0.93 H (0-0.5) mg/dl PG Care Time/CCT Total # of Minutes Spent Total Time Spent with Patient: Total time spent is greater than 50% in coordination of care (as documented) at patient's floor/unit and/or counseling patient: Coding Level of Care Code 63583 SUB INP/OBS CARE 3/50MIN Diagnoses Cellulitis L03.90 Rash R21 Pre-diabetes R73.03 Hypertension I10 Obesity E66.9
[2023-02-03] MEDS: ENOXAPARIN INJ 40 MG/0.4 ML SYR SQ SCH ×2 (08:12→20:39)
[2023-02-03] MEDS: ADVANCED PROBIOTIC 1250 MG CAPSULE PO SCH (08:12)
[2023-02-03] MEDS: hydroCHLOROthiazide 25 MG TAB PO SCH (08:12)
[2023-02-03] MEDS: hydrALAZINE HCL 20 MG/ML VIAL IV PRN (15:33)
[2023-02-03] MEDS: DAPTOmycin 425 MG in SYRINGE 0 ML IV SCH (15:39)
[2023-02-03] MEDS: BETAMETHASONE DIP AUG (DIPROLENE) 0.05% CR 15 GM TUBE EXT PRN (17:38)
[2023-02-04] MEDS: CEFEPIME 2,000 MG in SYRINGE 0 ML IV SCH (05:47)
[2023-02-04] MEDS: ENOXAPARIN INJ 40 MG/0.4 ML SYR SQ SCH ×2 (08:38→19:28)
[2023-02-04] MEDS: ADVANCED PROBIOTIC 1250 MG CAPSULE PO SCH (08:39)
[2023-02-04] MEDS: hydroCHLOROthiazide 25 MG TAB PO SCH (08:40)
--- NOTE | 2023-02-04 11:07 | Hospitalist Progress Note ---
Date of Service February 04, 2023 Assessment & Plan (1) Cellulitis: Plan: Acute and improving switched today to oral Cipro and Bactrim DS Patient will need to follow up with PCP and also to see a coastal/harbor defense officer as outpatient (2) Rash: Plan: Patient noted to have dryl/scaly and erythematous patches on the BL feet and elbows c/w psoriasis, never diagnosed in past or treated Topical hydrocortisone BID on admit (not to affected cellulitic leg at this time, patient aware of such) --> switched to betamethasone topical for better response given significant plaques CM working on derm f/u at discharge as above Continue topical rx at discharge in meantime (3) Pre-diabetes: Plan: A1c checked, 6.3 -- suspect metabolic syndrome w/ obesity as well/likely insulin resistance Counseling Will need outpt f/u Benefit from starting metformin, defer for now but could start at discharge, will discuss again with patient in the AM (4) Hypertension: Plan: Significant elevations, initially suspected due to pain but remaining elevated w/ pain resolving as per patient Asymptomatic from such Reports white coat HTN, but suspect longer standing given significant elevations Of note, they were prior checking BPs from her forearms Started HCTZ 12.5mg daily --> increased to 25mg daily, improvement in BPs and also to assist with swelling. Kidney function remaining stable. Monitor/consider adding LEE/ARB given pre-DM as well Monitor response to BP medications -- rx at dc Low sodium diet (5) Obesity: Plan: noted, BMI 61 Weight loss encouraged PCP being arranged for f/u as she does not have one -- also need f/u for Pre-DM and HTN as above Plan continued inpatient stay, changed to po antibiotics today CM working on new PCP in follow up at discharge as well as dermatology for underlying psoriasis (b/l extensor surfaces elbows and dorsal feet) Admission and Anticipated Discharge Date Admission Date: February 02, 2023 Subjective Patient was awake in bed and states her cellulitis in her left leg is definitely continuing to improve. She was hesitant to be discharged home today. She wanted to start the po antibitics and give her leg another day to continue to imrove until she is discharged. She was afraid to have to come back. Review of Systems Review of Systems: All ROS negative unless + above in History. Physical Exam Constitutional: + well hydrated, + obese and cooperative; no acute distress Eyes: PERRL, conjunctivae normal, anicteric sclerae ENMT: external ear and nose normal, oropharynx normal Neck: trachea midline, no thyromegaly Respiratory: normal respiratory effort, lungs clear to auscultation Cardiovascular: RRR, no murmur, no edema Extremities: + edema Less red per patient and she showed me a picture on her phone of her leg upon admission and is much improved from the picture. Gastrointestinal (Abdomen): normal bowel sounds, soft, nontender, no hepatosplenomegaly Skin: Left lower leg with erythema, does not go beyond the red outlined area. intact pulses and sensation, dry flaky plaques, consistent with probable psoriasis Psychiatric: A+Ox3, euthymic affect Results & Data Results & Data Vital Signs (Past 12 Hours) Vital Signs Temp Pulse Resp BP Pulse Ox O2 Del Method 02/04/23 07:18 37 C 89 18 145/87 H 94 Room Air Laboratory Results Abnormal lab results 02/04/23 Range/Units 08:50 Glucose 142 H (70-99(Fasting)) mg/dl C-Reactive Protein 0.71 H (0-0.5) mg/dl PG Care Time/CCT Total # of Minutes Spent Total Time Spent with Patient: Total time spent is greater than 50% in coordination of care (as documented) at patient's floor/unit and/or counseling patient: Coding Level of Care Code 95176 SUB INP/OBS CARE 09/26MIN Diagnoses Cellulitis L03.90 Rash R21 Pre-diabetes R73.03 Hypertension I10 Obesity E66.9
[2023-02-04 11:18] LABS: Calcium 9.2 mg/dl (8.6-10.3); Potassium 3.8 mmol/L (3.5-5.1)
[2023-02-04 11:24] LABS: BUN Creatinine Ratio 18.4 (10-20); C Reactive Protein 0.71 mg/dl (0-0.5); Creatinine Clr Calc Pharmacy 191.2 ml/min; Est GFR (African American) 114.5 ml/min; Est GFR (Non-African American) 98.8 ml/min
[2023-02-04] MEDS: CIPROFLOXACIN 500 MG TAB PO SCH ×2 (12:12→19:28)
[2023-02-04] MEDS: SULFAMETHOXAZOLE/TRIMETHOPRIM DS 800/160MG TAB PO SCH ×2 (12:12→19:28)
[2023-02-05] MEDS: SULFAMETHOXAZOLE/TRIMETHOPRIM DS 800/160MG TAB PO SCH (07:49)
[2023-02-05] MEDS: ADVANCED PROBIOTIC 1250 MG CAPSULE PO SCH (07:50)
[2023-02-05] MEDS: CIPROFLOXACIN 500 MG TAB PO SCH (07:50)
[2023-02-05] MEDS: hydroCHLOROthiazide 25 MG TAB PO SCH (07:50)
[2023-02-05] MEDS: ENOXAPARIN INJ 40 MG/0.4 ML SYR SQ SCH (07:50)
--- NOTE | 2023-02-05 11:20 | Discharge Summary ---
Date of Service February 05, 2023 Admission HPI Per Admitting Provider Jannie is a 37 year old female with a PMH significant for morbid obesity who presented to the [facility] ED on 01/31/23 with a chief complaint of left LE swelling, redness, and fevers. In the ED vitals were significant for a BP of 174/111 and HR of 101. Labs including CBC, CMP, and procal were only significant for a glucose of 117. Prior to admission the patient was given a dose of Cefepime and Daptomycin. At the time of the exam the patient was sitting in bed in no acute distress. She states that in mid December she noticed a small, erythematous [place] on the left anterior mathews after a shift at work, as a night shift. She put some Black Drawing Salve on the area which later caused a pimple/boil to form. She subsequently picked the boil, breaking the skin. She then developed significant erythema, swelling, and pain. She went to an acute care who initially started her on Keflex, but transitioned her to Bactrim 3 days later as she was not improving. She completed the course of bactrim and her symptoms seemed to resolv e, but the returned earlier this month. She was seen in the [facility] ED on 01/19 and had a negative LLE venous doppler, she was discharged on Doxycycline and Keflex. She returned to the ED on 01/28 as her symtpoms were not improving and she was switched to Keflex and Bactrim but her symptoms have still not improved. Last night she had a temperature of 100.1F. She denies recent chills, chest pain, SOB, abd pain, nausea, vomiting, diarrhea, dysuria, hematuria, melena, RLE swelling and recent trauma. She denies other significant PMH. When asked, she states that she has had some of the red and dry/scaly skin patches on the BL upper and lower extremities "for years". She has never been seen for these skin patches and typically puts lotion on them. Please refer to Dr. Harp's attestation for any changes to the treatment plan Admission Exam Per Admitting Provider Physical Exam: General:In no acute distress, stated age, morbidly obese, well-nourished, non-toxic appearing HEENT:Normocephalic, atraumatic, no scleral icterus, pupils around round, symmetrical, and reactive to light, moist mucus membranes, trachea midline, no thyromegaly Chest/Pulm:No respiratory distress, symmetrical chest expansion, clear breath sounds throughout Cardiac:RRR, no murmurs noted Abdomen:Negative for ascites and bruising, normoactive bowel sounds, soft, non-tender to palpation throughout Musculoskeletal:Symmetrical and without signs of acute trauma, upper and lower extremities with full ROM, no atrophy, spasticity, or flaccidity Extremities:Radial, dorsalis pedis, and posterior tibial pulses are intact and symmetrical, significant swelling in the LLE Skin:Patient with singificant circumferential erythema and swelling of the LLE from the distal mathews to the proximal mathews, well-healing scab noted in the middle of the mathews without signs of drainage, multiple patches of dry/scaly/erythematous skin on the dorsal aspects of the BL feet and overlying the BL elbows Neuro:Alert and oriented to person, place, month, year, and president, no focal defects, no tremors noted Psych:No acute distress, calm and cooperative during the exam Principal Diagnosis cellulitis HTN prediabetes rash - psoriasis Discharge Exam Constitutional + well hydrated, + obese and cooperative; no acute distress Eyes PERRL, conjunctivae normal, anicteric sclerae ENMT external ear and nose normal, oropharynx normal Neck trachea midline, no thyromegaly Respiratory normal respiratory effort, lungs clear to auscultation Cardiovascular RRR, no murmur, no edema Extremities: + edema Gastrointestinal (Abdomen) normal bowel sounds, soft, nontender, no hepatosplenomegaly Skin left lower leg much less erythema, no warmth to palpation, DP, PT pulses +2 symmetric Neurologic PERRL, EOMI, accommodation nl, no face palsy, no dysarthria Psychiatric A+Ox3, euthymic affect Discharge Data Allergies Allergy/AdvReac Type Severity Reaction Status Date / Time No Known Allergies Allergy Verified 01/31/23 15:20 Consultations 01/31/23 15:09 ED Decision to Admit Stat Hospital Course (1) Cellulitis: Acute and improving switched 02/04/23 to oral Cipro and Bactrim DS Patient will need to follow up with PCP and also to see a vascular ultrasound technician as outpatient Appt marnie Rasmussen - hospital follow up appt 02/13/23 at 10:20 - New patient visit 04/25/23 at 1:45 Dermatolgy at [facility] in July Possible appt with [facility] dermatology - if is sooner can cancel the [facility] derm appt (2) Rash: Patient noted to have dryl/scaly and erythematous patches on the BL feet and elbows c/w psoriasis, never diagnosed in past or treated Topical hydrocortisone BID on admit (not to affected cellulitic leg at this time, patient aware of such) --> switched to betamethasone topical for better response given significant plaques CM working on derm f/u at discharge as above Continue topical rx at discharge in meantime (3) Pre-diabetes: A1c checked, 6.3 -- suspect metabolic syndrome w/ obesity as well/likely insulin resistance Counseling Will need outpt f/u Benefit from starting metformin, defer for now, patient to try and loose weight and will discuss with PCP at follow up (4) Hypertension: Significant elevations, initially suspected due to pain but remaining elevated w/ pain resolving as per patient Asymptomatic from such Reports white coat HTN, but suspect longer standing given significant elevations Of note, they were prior checking BPs from her forearms Started HCTZ 12.5mg daily --> increased to 25mg daily, improvement in BPs and also to assist with swelling. Kidney function remaining stable. Monitor/consider adding LEE/ARB give n pre-DM as well patient wanting to discuss further with PCP Monitor response to BP medications -- rx at dc Low sodium diet also discussed DASH diet and increase po water intake and increase activity (5) Obesity: noted, BMI 61 Weight loss encouraged PCP being arranged for f/u as she does not have one -- also need f/u for Pre-DM and HTN as above Plan continued inpatient stay, changed to po antibiotics today CM working on new PCP in follow up at discharge as well as dermatology for underlying psoriasis (b/l extensor surfaces elbows and dorsal feet) Total Time Total Time Spent Total Time Spent (In Minutes): 40 Discharge Plan Discharge Items Patient Disposition: Home - Self-Care Reason For Visit: LEFT LEG CELLULITIS Discharge Diagnosis: cellulitis HTN prediabetes obesity possible psoriasis Condition on Discharge: Good Activity: Resume your previous activity Lifting: Gradually increase as tolerated Bathing: No limitations Exercise/Sports: Gradually increase as tolerated Driving/Machine Use: Resume 1 day after discharge Weightbearing: Full weightbearing Non-emergency contact: Primary Care Provider Call non-emergency contact if: you have any medication questions, your symptoms worsen, your temperature is above 101.5, your wound has increased redness, your wound has increased drainage and your wound pain has increased Follow-up/Referrals: Stephen Rasmussen CRNP [Nurse Practitioner] - 04/25/23 1:45 pm (Establish care appointment) Shelly Anna PA-C [Physician [employer]] - 02/13/23 10:20 am (hospital follow up) Stephen Mace MD [Physician] - 07/22/23 3:00 pm (Referral sent to [facility]- they will reach out to you to schedule- will need to cancel this appointment if schedule elsewhere. ) Diet: Carb Consistent or DM2 and Low Sodium (2gm) Addtl Attending Provider Instructions: You were admitted with left lower leg skin infection (cellulitis) and were treated with IV antibiotics and yesterday changed over to oral antibiotics. You will need to finish another 6 days of antibiotics, starting tonight. You also were found to have elevated blood pressure and were started on a medication that is also a diuretic. HCTZ this is one pill per day in the AM. You also were foud to have prediabetes and may benefit from starting metformin. This can be discussed with your new PCP at your appt Discussed increasing po water intake, low sodium and carb consistent diet also discussed a DASH diet for the elevated blood pressure. Increase exercise to aid in overall weight loss. which will not only help the prediabetes but also the blood pressure. It is also likely that you have psoriasis and you have an appt with dermatology In the meantime you can take an over the counter antihistamine for skin itching and can use OTC hydrocortisone cream BID as needed until you see derm. Discussed also cooler baths and showers, oatmeal baths to help soothe the skin as well. Pending Studies at Discharge: No Stand-Alone Forms: My [facility] Medications and DC Order Prescriptions: New ciprofloxacin HCl 500 mg Tablet 500 mg PO BID Qty: 12 0RF sulfamethoxazole-trimethoprim [Bactrim DS] 800-160 mg Tablet 1 tab PO Q12 Qty: 12 0RF hydrochlorothiazide 25 mg Tablet 25 mg PO QAM Qty: 30 2RF betamethasone, augmented [Diprolene (augmented)] 0.05 % Ointment 1 applic EXT DAILY PRN (Reason: itching) Qty: 15 0RF Discontinued sulfamethoxazole-trimethoprim [Bactrim DS] 800-160 mg tablet 1 tab PO BID 7 Days Qty: 14 0RF Rx Instructions: STARTED 01/30/23 FOR 7 DAYS. cephalexin 500 mg capsule 500 mg PO Q6H Rx Instructions: STARTED 01/30/23 FOR 5 DAYS. Discharge Orders: Discharge Order (Routine); Ordered 02/05/23 Ordered By: Leah Roach/Other Patient Handouts: Prediabetes, 5 Steps for Eating Healthier, Losing Weight for Heart Health, Low-Salt Choices, Diabetes Control Without Meds Admission Data Admit Date/Time: 02/02/23 15:29 Attending Provider: James Vogt Admit Provider: Kaveh Harp Primary Care Provider: PCP,NO Other Providers: Kaveh Harp Other Interventions: Discharge Summary Assessment (RN) Last Done: 02/05/23 11:55 Coding Level of Care Code 90054 INP/OBS DISCH >30 MIN Diagnoses Cellulitis L03.90 Rash R21 Pre-diabetes R73.03 Hypertension I10 Obesity E66.9 Time Spent (min) 40
== END 2023-02-05 14:43 | disposition home or self-care (01) ==
LOC: EDINP 12:59 → ED 12:59 → SUATTDRO 15:15 → 3E 20:21 → SUATTDRO 02-02 15:29